=== PATIENT | female | born 1975 ===

== ENCOUNTER 2018-05-25 08:56 | Outpatient (CLI) | payer BC | END 2018-05-25 08:57 | disposition home or self-care (01) | LOC: C.MAMMO 08:56 | DX: Z12.31 Encounter for screening mammogram for malignant neoplasm of breast (principal) ==

== ENCOUNTER 2018-06-12 09:02 | Outpatient (CLI) | payer BC | END 2018-06-12 09:03 | disposition home or self-care (01) | LOC: C.MAMMO 09:02 | DX: R92.8 Other abnormal and inconclusive findings on diagnostic imaging of breast (principal) ==